=== PATIENT | male | born 1965 | race Caucasian/White ===

== ENCOUNTER → 2018-05-04 | Outpatient (CLI) | payer OTHER ==
[~2018-05-04] MED LIST: BENZOCAINE ONE 20% MUCOSAL SPRAY.; IOHEXOL 350 MG/ML 100 ML VIAL. ONE; IOHEXOL 350 MG/ML 50 ML VIAL. ONE; IV NORMAL SALINE 1000ML BAG 1,000 ML ONE; LIDOCAINE 1% Multi-Dose 50 ML VIAL. ONE; MIDAZOLAM HCL/PF 2 MG/2 ML VIAL. ONE; fentaNYL PF VIAL 100 MCG/2 ML VIAL ONE
--- NOTE | 2018-05-04 15:45 | PCVCIMAG ---
APPROVED REPORT Study performed: 05/04/2018 08:57:11 EXAM: Transesophageal Echocardiogram Patient Location: [facility] Room #: 1 BSA: 2.38 HR: 88 bpmBP: 147/103 mmHg Rhythm: NSR Other Information Study Quality: Good Indications Assess Ejection Fraction R/O apical thrombus Echo Enhancing Agent Indication: Rule out Shunt Agent(s) / Amount(s) Used: Agitated Saline 10 cc Procedure After obtaining informed consent, patient underwent transesophageal echo in the [facility]. Type of Sedation : Conscious Sedation Sedation was administered by Yanet Flores RN. Sedation was achieved intravenously with: Versed (4mg) Fentanyl (100mcg) Transesophageal probe was inserted and advanced into esophagus without difficulty by Han Varela MD. Echo enhancement indication: R/O Septal defect. Echo enhancement agent administered: Agitated Saline The BRITT was performed without complications. Throughout the procedure, the blood pressure, pulse oximetry, cardiac rhythm, and rate were monitored. The patient tolerated the procedure without adverse effects. Recovery from conscious sedation was uneventful and vital signs were stable. Left Ventricle The left ventricle is normal size. There is normal LV segmental wall motion. There is normal left ventricular wall thickness. Left ventricular systolic function is normal. LVEF is 50-55%. Right Ventricle The right ventricle is normal size. The right ventricular systolic function is normal. Atria The left atrium size is normal. No thrombus in left atrium or left atrial appendage. Patent foramen ovale with small amount of right to left shunting by contrast bubble injection The right atrium size is normal. Aortic Valve The aortic valve is normal in structure. No aortic regurgitation is present. There is no aortic valvular stenosis. Mitral Valve The mitral valve is normal in structure. Mild mitral regurgitation. No evidence of mitral valve stenosis. Tricuspid Valve The tricuspid valve is normal in structure. Trace tricuspid regurgitation. Pulmonic Valve The pulmonary valve is normal in structure. There is no pulmonic valvular regurgitation. Great Vessels The aortic root is normal in size. The ascending aorta is normal in size. Aortic arch is normal in caliber. Pericardium There is no pericardial effusion. There is no pleural effusion. <Conclusion> Left ventricular systolic function is normal. There is normal LV segmental wall motion. LVEF 50-55%. Patent foramen ovale with small amount of right to left shunting by contrast bubble injection The left and right atria are normal. No thrombus in left atrium or left atrial appendage. The aortic valve is normal in structure. No aortic regurgitation or stenosis The mitral valve is normal in structure. Mild mitral regurgitation. Normal aorta There is no pericardial effusion.
--- NOTE | 2018-05-04 16:29 | PCVCINTER ---
APPROVED REPORT Study performed: 05/04/2018 14:09:54 Patient Details Patient Status: Out-Patient Room #: 1 The patient is a 52 year-old Male Event Personnel Patricia Salas MD, Carmen Valle RT(R)(), Dk Lagos RT(R), Erik Ramírez RN Indication Dyspnea Risk Factors Arterial HypertensionDysplipidemia (Type: 1)Obesity, HypercholesterolemiaPhysical Activity, Diabetes (Control: Insulin)Tobacco History (Never) Previous Procedures/Diagnoses Hypertension, Diabetes, Sleep apnea Procedure Narrative The patient was brought electively to the Cardiac Catheterization Laboratory and was prepped and draped in a sterile manner. The right femoral was infiltrated with 1% Lidocaine subcutaneous anesthesia. A 4F sheath was inserted into the right femoral artery. Coronary angiography was performed using coronary diagnostic catheters. The right coronary system was accessed and visualized with a JR4 catheter. The left coronary system was accessed and visualized with a JL4 catheter. The left ventricle was accessed and visualized with a Angled Pigtail catheter. Left ventriculogram was performed in BLANCO projection. Hemostasis was obtained with manual pressure following sheath removal without any complications. The patient tolerated the procedure well and there were no complications associated with the procedure. There was no hematoma. Coronary Angiography The patient's coronary anatomy is right dominant. Diagnostic Cath Left MainPatent vessel, mild disease in the mid segment, 20%. LADModerate size caliber vessel, traveling down the anterior wall and wrapping around the apex. There is mild disease in the proximal segment. Within the mid segment, there is moderate diffuse disease, 40-50%. Diagonal 1There is a borderline stenosis in the proximal segment, 60-70%. Recommend medical therapy. Diagonal 2Patent vessel, with no flow-limiting lesions. CircumflexThere is a moderate stenosis at the ostium, 50-60%. The remaining segments of the left circumflex artery are patent. [id number] vessel, with no flow-limiting lesions. [id number] size caliber vessel, with mild disease proximally. Right CoronaryDominant vessel, tortuous in the proximal and mid segments. There is mild disease in the mid segment, 30%. R PDAPatent vessel, with no flow-limiting lesions. RPLVModerate size caliber vessel with a moderate to severe stenosis in the proximal segment, 50-60%. Left Ventriculography The left ventricle is normal in size with normal contractility. The left ventricular ejection fraction is estimated to be 60%. Hemodynamics The aortic pressure is 126/56 mmHg with a mean of 83 mmHg. The left ventricular pressure is 135/4 mmHg with a mean of 14 mmHg. Conclusion 1. Moderate CAD as described above. 2. Borderline lesion in the first diagonal artery, recommend medical therapy. 3. Normal LV systolic function. 4. Recommend aggressive risk factor management.
== END | disposition home or self-care (01) ==
LOC: PCVCINTER 08:51
PROVIDERS: ATTEND Internal Medicine
DX: I25.10 Atherosclerotic heart disease of native coronary artery without angina pectoris (principal); I08.1 Rheumatic disorders of both mitral and tricuspid valves; I10 Essential (primary) hypertension; E11.9 Type 2 diabetes mellitus without complications; G47.30 Sleep apnea, unspecified; I42.9 Cardiomyopathy, unspecified; Z79.84 Long term (current) use of oral hypoglycemic drugs; Z79.899 Other long term (current) drug therapy
CPT/HCPCS: 93312; 93458; J1644; J2250; J3010; J7030; Q9967; C1751; C1769; C1894